=== PATIENT | female | born 1980 | race Caucasian/White ===

== ENCOUNTER 2024-05-22 13:46 | Emergency (ER) | payer OTHER, SELFPAY ==
[2024-05-22 13:50] VITALS: BP 125/67
[2024-05-22 14:10] LABS: Urine Albumin Negative (Neg - Trace); Urine Bilirubin Negative (Negative); Urine Character Clear (Clear); Urine Color Yellow; Urine Glucose Negative (Negative); Urine Ketone Negative (Negative); Urine Leukocyte Trace (Negative); Urine Nitrite Negative (Negative); Urine Occult Blood Negative (Negative); Urine Urobilinogen Negative (Neg - 1+); Urine pH 6.5 (5.0-9.0)
[2024-05-22 14:13] LABS: % Eosinophils 5.6 % (0-6); % Immature Granulocytes 0.2 % (0-0.5); % Lymphocytes 38.2 % (20.5-51.1); % Monocytes 5.1 % (1.7-9.3); % Neutrophils 49.9 % (42.2-75.2); Absolute Basophils 0.1 10^3/uL (0-0.2); Absolute Eosinophils 0.3 10^3/uL (0-0.7); Absolute Lymphocytes 2.3 10^3/uL (1.2-3.4); Absolute Monocytes 0.3 10^3/uL (0.1-0.6); Hematocrit 38.6 % (37.0-47.0); Mean Corp Hgb Conc. 33.7 g/dL (33.0-37.0); Mean Corpuscular Hgb 30.8 pg (27.0-31.0); Mean Corpuscular Volume 91.5 fL (81.0-99.0); Mean Platelet Volume 10.2 fL (7.4-10.4); Nucleated Red Blood Cells % 0 %; Platelet Count 264 10^3/uL (130-400); Red Blood Cell Count 4.22 10^6/uL (4.20-5.40); Red Cell Dist. Width 13.1 % (11.5-14.5); White Blood Cell Count 5.9 10^3/uL (4.8-10.8)
[2024-05-22 14:16] LABS: HCG, Serum Qualitative Screen Negative
[2024-05-22 14:18] LABS: ALT (SGPT) 28 U/L (0-35); AST (SGOT) 27 U/L (14-36); Albumin 4.3 g/dl (3.5-5.0); Alkaline Phosphatase 61 U/L (38-126); Blood Urea Nitrogen 12 mg/dl (7-17); Calcium 9.4 mg/dl (8.4-10.2); Carbon Dioxide 26 mmol/L (22-30); Chloride 104 mmol/L (98-107); Glucose 81 mg/dl (70-99); Potassium 4.2 mmol/L (3.5-5.1); Sodium 137 mmol/L (135-145); Total Bilirubin 0.6 mg/dl (0.2-1.3); Total Protein 7.1 g/dl (6.3-8.2); eGFR > 60.00
[2024-05-22 14:32] LABS: Urine Squamous Cell >30 /LPF (Few)
[2024-05-22 14:43] LABS: Urine Red Blood Cell None Seen /HPF (0-2)
--- NOTE | 2024-05-22 15:42 | ED.GENMED ---
History of Present Illness
General
Chief Complaint: Back Pain
Source: patient
Exam Limitations: none
Time Seen by Provider: 05/22/24 15:20
Nursing documentation reviewed up to this point in time: agreed with
History of Present Illness
History of Present Illness:
44-year-old female past medical history of GERD presenting to the emergency department today with concerns of low back pain. She was treated for a kidney infection 1 week ago which seemed to improve with. Symptoms better yesterday but worsened
again today. Made worse with movement denies any urinary symptoms no fever no nausea no vomiting.
Review of Systems
Review of Systems
Allergies reviewed?: Yes
All Other Systems: ROS reviewed and negative except as documented in HPI and ROS
Phy Exam
Physical Exam
Physical Exam:
GENERAL: Alert , in no apparent distress
EYE: pupils equal and reactive
NECK: Supple, no significant adenopathy.
ENT: o/p clr, mmm.
CARDIAC: Regular rate and rhythm .
LUNGS: Clear breath sounds bilaterally, no acute respiratory distress, no wheezes/rales/rhonchi
ABDOMEN: Soft, without focal tenderness, no r/g, no cvat
NEUROLOGICAL: Alert and oriented, no focal neuro deficits
SKIN: Warm and dry, skin intact.
MUSCULOSKELETAL: No edema, well perfused.
PSYCH: Normal and appropriate interaction.
Course
Orders/Labs/Results
Orders:
Orders
05/22/24 13:54
Test Result ONCE
05/22/24 14:02
Complete Blood Count/With Diff Urgent
Comprehensive Metabolic Panel Urgent
HCG, Serum Qualitative Screen Urgent
Urinalysis Reflex To Culture Urgent
Date Specimen was Collected: 05/22/24
Time Specimen was Collected: 13:54
Urine Microscopic Reflex Cult Urgent
05/22/24 16:44
Diazepam [Valium] 5 mg PO NOW STA
Ibuprofen [Motrin] 600 mg PO NOW STA
Abnormal Lab Results
05/22/24
14:02
Leukocyte Esterase Rfl Trace A
(Negative)
05/22/24 14:02
05/22/24 14:02
Vital Signs
Initial and Last Documented VS:
Initial Vital Signs
Temp Pulse Resp BP Pulse Ox
98.2 F 65 18 125/67 98
05/22/24 13:50 05/22/24 13:50 05/22/24 13:50 05/22/24 13:50 05/22/24 13:50
Last Documented Vital Signs
Temp Pulse Resp BP Pulse Ox
98.2 F 65 18 125/67 98
05/22/24 13:50 05/22/24 13:50 05/22/24 13:50 05/22/24 13:50 05/22/24 13:50
MDM/Problems Addressed
MDM/Problems Addressed:
44-year-old female presenting to the emergency department today with concerns of low back discomfort that occurred after seemingly improving after being treated for a kidney infection over the past week. Concluded the antibiotics. On arrival vital
signs are normal. Labs are obtained without acute abnormalities no white count normal renal function no evidence of UTI on urinalysis. Patient assessed she had increased discomfort and some difficult certain movements making her back pain much
more consistent with mechanical back pain. Of note the patient additionally had an outpatient CT scan she brought the read from 3 days ago that did not show any significant hydronephrosis or kidney stones. Plan treatment of this with symptomatic
treatment otherwise stable for outpatient management. Return precautions given.
*Critical Care Note
Total Time (30-74mins, 75-104mins- exclusive of procedures): Not Applicable
ED Attending Note
-
Portions of this chart may have been created with voice recognition software.� Occasional wrong word or��sound alike� substitutions may have occurred due to the inherent limitations of voice recognition software.
Discharge Plan
Departure
Patient Disposition: Home (Routine Discharge)
Date of Disposition: 05/22/24
Time of Disposition: 17:01
Patient with high blood pressure during this ER visit?: No
Condition: Good
Covid-19: Not Applicable
Discharge Problem:
Back pain
Instructions: Low Back Pain (DC)
Prescriptions:
New
cyclobenzaprine 10 mg tablet
10 mg PO HS PRN (Reason: muscle spasm) Qty: 7 0RF
ibuprofen 600 mg tablet
600 mg PO Q8H PRN (Reason: pain) Qty: 12 0RF
Referrals:
Mary Beth Aquino CRNP [Family Provider] -
Activity Restrictions/Additional Instructions:
You came to the emergency department today with concerns of low back pain. No evidence of ongoing infection. Please follow-up closely as an outpatient and take the prescribed medications. Return to the emergency department for any worsening, new
or concerning symptoms.
Interventions
Interventions:
*Risk Screen - Suicide Last Done: 05/22/24 13:50
*Neglect/Abuse Screening Last Done: 05/22/24 13:50
ED- Fall Risk Assessment Last Done: 05/22/24 16:35
*ED COVID-19 Vaccine History Last Done: 05/22/24 13:50
ED-Musculoskeletal Assessment Last Done: 05/22/24 16:35
Discharge Date and Time
Print Language: [place]
[2024-05-22] MEDS: MOTRIN 600 MG PO (16:51)
[2024-05-22] MEDS: VALIUM 5 MG PO (16:52)
== END 2024-05-22 17:17 | disposition home or self-care (01) ==
LOC: EMR 13:46
PROVIDERS: Emergency Medicine; EMERGENCY PHYSICIAN Emergency Medicine; FAMILY PHYSICIAN Nurse Practitioner Family
DX: M54.50 Low back pain, unspecified (principal); K21.9 Gastro-esophageal reflux disease without esophagitis
CPT/HCPCS: 99282; 80053; 81003; 81015; 84703; 85025